=== PATIENT | male | born 1945 | race Caucasian/White ===

== ENCOUNTER 2018-12-06 09:00 | Outpatient (RCR) | payer MEDICARE, BC ==
--- NOTE | 2018-11-16 09:18 | NUR ---
11/15/18 1423 Call to pt to inquire on how he is feeling since post op knee surgery. Pts picked up phone stating he is in the middle of physical therapy and can't come to the phone. She states he has a long road ahead of him and that he is coping. will continue to follow up with pt.
--- NOTE | 2018-11-30 08:21 | NUR ---
11/29/18 1043 Call to patient to inquire on how he is doing since his knee surgery 10/27/18. pt states he is doing much better. Pt states he will be returning to IOP and Treatment team this Thursday, December 03.
[~2018-12-06] VITALS: Ht 170.2 cm; Wt 71.7 kg
[~2018-12-06 09:00] MED LIST: AMLODIPINE BESYL5 MG PO; ASPIRIN 81 LOW81 MG PO; FOLIC ACID 400 MCG PO; INDERAL 40MG TA40 MG PO; PRAVASTATIN SOD80 MG PO; VITAMIN B-12500 MC1 PO
[2018-12-06 10:30] VITALS: BP 149/94
--- NOTE | 2018-12-06 10:39 | NUR ---
12/03/18 Patient in today for Treatment team. Pt presents clean and neat, alert and oriented x 4. Pt is in a bright mood. Pt presents today with using a walker. Pt is post op left knee surgery (10/27/18). Pt states he is doing well, continuing with physical therapy. Pt states he has not had a drink since his surgery. Pt states this doesn't mean he will never drink again but that he is coping well. Pt denies any suicidal thoughts at present time. Pt will continue for now 1-2x/week as physically tolerated. Pt will follow up in one month. Treatment team concluded.
--- NOTE | 2018-12-07 11:05 | NUR ---
12/06/18 0931 Patient in office today for monthly vitals. Pt vitals are: BP 149/94, P 61 T97.8 RR 16. Pt states he forgot to take his blood pressure medication today. Pt is post op knee surgery on 10/26/18. Pt states he is continuing with physical therapy and doing well. Pt states he has not been drinking since his surgery. Pt denies any suicidal thoughts at this time.
== END 2018-12-09 23:59 | disposition still patient (30) ==
LOC: PATHWAYS 09:00
PROVIDERS: ATTEND Specialist
DX: F43.21 Adjustment disorder with depressed mood (principal)